=== PATIENT | female | born 2005 | race Caucasian/White ===

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

== ENCOUNTER 2023-03-16 10:42 | Inpatient (IN) | payer OTHER ==
[2023-03-16] MEDS ORDERED: DINOPROSTONE 10 MG VAGINAL SUPPOSITORY VG ONE (11:06)
[2023-03-16 12:07] VITALS: BMI 43.0
[2023-03-16 12:57] LABS: BASO % 0.4 % (0-2.0); EOS % 2.3 % (0-4.5); HEMATOCRIT 34.3 % (32.4-45.2); HEMOGLOBIN 11.6 GM/dL (10.7-15.3); LYMPH % 19.4 % (8-40); MCH 30.6 pg (25.7-33.7); MCHC 33.8 g/dl (32.0-36.0); MEAN CELL VOLUME 90.6 fl (80-96); MEAN PLT VOLUME 9.8 fl (7.5-11.1); MONO % 5.3 % (3.8-10.2); NEUT % 72.6 % (42.8-82.8); PLATELET COUNT 248 10^3/uL (134-434); RBC 3.78 M/mm3 (3.60-5.2); RDW 12.8 % (11.6-15.6); WHITE BLOOD COUNT 9.1 K/mm3 (4.0-10.0)
[2023-03-16 13:05] LABS: INR 1.03 (0.83-1.09); PROTHROMBIN TIME (PATIENT) 11.9 SEC (9.7-13.0)
[2023-03-16 13:07] LABS: ACTIVATED PTT 30.4 SECONDS (25.2-36.5)
[2023-03-16 13:11] LABS: POTASSIUM 4.1 mmol/L (3.5-5.1)
[2023-03-16 13:13] LABS: CALCIUM 9.4 mg/dL (8.5-10.1)
[2023-03-16 13:14] LABS: ALBUMIN 2.6 g/dl (3.4-5.0); BLOOD UREA NITROGEN 5.8 mg/dL (7-18)
[2023-03-16 13:16] LABS: CREATININE 0.6 mg/dL (0.55-1.3)
[2023-03-16 13:18] LABS: BILIRUBIN,TOTAL 0.5 mg/dL (0.2-1)
[2023-03-16 13:19] LABS: TOT PROT 6.7 g/dl (6.4-8.2)
[2023-03-16 13:39] LABS: HEPATITIS B SURFACE AG MATERN NON-REACTIVE (NONREACTIVE)
[2023-03-16 13:40] LABS: SYPHILIS W/ RPR CONF NON-REACTIVE (NONREACTIVE)
[2023-03-16 17:44] LABS: URINE BARBITURATES NEGATIVE (NEGATIVE)
[2023-03-16 17:45] LABS: COCAINE, UR NEGATIVE (NEGATIVE); METHADONE, UR NEGATIVE (NEGATIVE); PHENCYCLIDINE,URINE NEGATIVE (NEGATIVE); URINE AMPHETAMINES NEGATIVE (NEGATIVE); URINE BENZODIAZEPINES NEGATIVE (NEGATIVE)
[2023-03-16 18:12] LABS: OPIATES, URI NEGATIVE (NEGATIVE)
[2023-03-16] MEDS: ELECTROLYTE-148 SOLN 1,000 ML IV SCH (19:25)
[2023-03-17] MEDS: ELECTROLYTE-148 SOLN 1,000 ML IV SCH ×3 (00:50→23:39)
[2023-03-17] MEDS ORDERED: BUTORPHANOL TARTRATE 1 MG/ML VIAL IVPB ONE (01:40)
[2023-03-17] MEDS ORDERED: PROMETHAZINE HCL 25 MG/1 ML VIAL IVPB ONE (01:40)
[2023-03-17] MEDS ORDERED: DINOPROSTONE 10 MG VAGINAL SUPPOSITORY VG ONE (02:15)
[2023-03-17] MEDS ORDERED: BUTORPHANOL TARTRATE 2 MG/ML VIAL ONE (02:20)
[2023-03-17] MEDS ORDERED: PROMETHAZINE HCL 25 MG/1 ML VIAL ONE (02:20)
[2023-03-17] MEDS ORDERED: ACETAMINOPHEN 325 MG TABLET (FP) PO PRN (12:24)
[2023-03-17] MEDS ORDERED: DINOPROSTONE 10 MG VAGINAL SUPPOSITORY VG STA (12:29)
[2023-03-17] MEDS ORDERED: OXYTOCIN 30 UNITS in 0.9% NS 30 UNIT/500 ML INFUS.BAG IVPB SCH (13:45)
[2023-03-17] MEDS ORDERED: OXYTOCIN 30 UNITS in 0.9% NS 30 UNIT/500 ML INFUS.BAG IVPB ONE (13:47)
[2023-03-17] MEDS ORDERED: FENTANYL/BUPIVACAINE/NS/PF - PCEA - 50 ML DISP.SYRIN EP ONE ×2 (16:50→20:57)
[2023-03-17] MEDS ORDERED: BUPIVACAINE HCL/PF 0.25% (2.5MG/ML) 10 ML VIAL ONE (16:51)
[2023-03-17] MEDS: FENTANYL/BUPIVACAINE/NS/PF - PCEA - 50 ML DISP.SYRIN EP SCH ×2 (17:10→21:00)
[2023-03-17] MEDS ORDERED: NALOXONE HCL 0.4 MG/ML VIAL IVPUSH PRN (17:33)
[2023-03-18] MEDS ORDERED: FENTANYL/BUPIVACAINE/NS/PF - PCEA - 50 ML DISP.SYRIN EP ONE ×4 (00:27→09:31)
[2023-03-18] MEDS: FENTANYL/BUPIVACAINE/NS/PF - PCEA - 50 ML DISP.SYRIN EP SCH ×4 (00:39→09:35)
[2023-03-18] MEDS ORDERED: ONDANSETRON 4 MG/2 ML VIAL ONE ×2 (03:43→11:49)
[2023-03-18] MEDS ORDERED: ONDANSETRON 4 MG/2 ML VIAL IVPUSH ONE (04:19)
[2023-03-18] MEDS: ELECTROLYTE-148 SOLN 1,000 ML IV SCH (04:26)
[2023-03-18] MEDS ORDERED: OXYTOCIN 20 UNITS in 0.9% NS 20 UNIT/1,000 ML INFUS.BAG IV ONE (07:46)
[2023-03-18] MEDS ORDERED: FENTANYL CITRATE/PF 50 MCG/ML VIAL ONE ×2 (08:03→08:04)
[2023-03-18] MEDS ORDERED: LABETALOL HCL 5 MG/1 ML (100MG/20 ML VIAL) IVPUSH ONE (09:02)
[2023-03-18] MEDS ORDERED: LABETALOL HCL 5 MG/1 ML (100MG/20 ML VIAL) IVPUSH PRN ×2 (09:18→09:28)
[2023-03-18] MEDS ORDERED: hydrALAZINE HCL 20 MG/ML VIAL IVPUSH PRN (09:38)
[2023-03-18] MEDS ORDERED: CITRIC ACID/SODIUM CITRATE 30 ML UNIT-DOSE CUP PO ONE ×2 (10:16→10:30)
[2023-03-18] MEDS ORDERED: ELECTROLYTE-148 SOLN 1,000 ML IV SCH (10:30)
[2023-03-18] MEDS ORDERED: ELECTROLYTE-148 SOLN 500 ML IV SCH (10:30)
[2023-03-18] MEDS ORDERED: morphine SULFATE/PF 1 MG/2 ML (2cc Syringe - QUVA) ONE (11:17)
[2023-03-18] MEDS ORDERED: ceFAZolin SODIUM 1 GM VIAL ONE (11:18)
[2023-03-18] MEDS ORDERED: SODIUM CHLORIDE 0.9% P/F 10 ML VIAL IJ ONE (11:18)
[2023-03-18] MEDS ORDERED: PHENYLEPHRINE HCL 10 MG/1 ML SINGLE DOSE VIAL ONE (11:49)
[2023-03-18] MEDS ORDERED: METOCLOPRAMIDE HCL INJECTION 10 MG/2 ML VIAL ONE (11:49)
[2023-03-18] MEDS ORDERED: OXYTOCIN 10 UNITS/ML VIAL ONE (11:59)
[2023-03-18] MEDS ORDERED: METHYLERGONOVINE MALEATE 0.2 MG/1 ML AMP IM PRN (12:27)
[2023-03-18 14:09] LABS: CORD BASE EXCESS -6.1 mmol/L (0-2); CORD HCO3 19.2 mmHg (20-29); CORD PCO2 37.4 mmHg (30-78); CORD pH 7.328 (7.14-7.44)
[2023-03-18 14:19] LABS: CORD HCO3 16.9 mmHg (20-29); CORD PCO2 28.1 mmHg (30-78); CORD pH 7.397 (7.14-7.44)
[2023-03-18] MEDS: OXYTOCIN 20 UNITS in 0.9% NS 20 UNIT/1,000 ML INFUS.BAG IV SCH ×2 (14:41→23:14)
[2023-03-18] MEDS: CEFAZOLIN SODIUM 2 GM in DEXTROSE 5%-WATER 100 ML IVPB SCH (18:40)
[2023-03-18] MEDS: IBUPROFEN 800 MG/8 ML IJ IVPB PRN (23:29)
[2023-03-19] MEDS ORDERED: oxyCODONE HCL 5 MG TABLET PO PRN (00:27)
[2023-03-19] MEDS: CEFAZOLIN SODIUM 2 GM in DEXTROSE 5%-WATER 100 ML IVPB SCH ×2 (01:45→10:46)
[2023-03-19] MEDS: IBUPROFEN 800 MG/8 ML IJ IVPB PRN (08:01)
[2023-03-19 08:42] LABS: BASO % 0.5 % (0-2.0); EOS % 1.3 % (0-4.5); HEMATOCRIT 27.9 % (32.4-45.2); HEMOGLOBIN 9.6 GM/dL (10.7-15.3); LYMPH % 16.5 % (8-40); MCH 31.5 pg (25.7-33.7); MCHC 34.3 g/dl (32.0-36.0); MEAN CELL VOLUME 91.8 fl (80-96); MEAN PLT VOLUME 9.2 fl (7.5-11.1); MONO % 6.4 % (3.8-10.2); NEUT % 75.3 % (42.8-82.8); PLATELET COUNT 179 10^3/uL (134-434); RBC 3.04 M/mm3 (3.60-5.2); RDW 12.9 % (11.6-15.6); WHITE BLOOD COUNT 8.6 K/mm3 (4.0-10.0)
[2023-03-19] MEDS: ENOXAPARIN NA (PORCINE) 40 MG/0.4 ML DISP.SYRIN SQ SCH (10:53)
[2023-03-19] MEDS: ACETAMINOPHEN 325 MG TABLET (FP) PO PRN ×2 (11:36→18:31)
[2023-03-19] MEDS: SIMETHICONE 80 MG TAB.CHEW (FP) PO PRN ×3 (11:37→20:49)
[2023-03-19] MEDS ORDERED: BISACODYL 10 MG SUPP.RECT RC PRN (12:27)
[2023-03-19] MEDS: IBUPROFEN 600 MG TABLET (FP) PO PRN ×2 (15:17→20:49)
[2023-03-19] MEDS: OXYTOCIN 20 UNITS in 0.9% NS 20 UNIT/1,000 ML INFUS.BAG IV SCH (20:22)
[2023-03-20] MEDS: SIMETHICONE 80 MG TAB.CHEW (FP) PO PRN ×3 (02:55→14:37)
[2023-03-20] MEDS: ACETAMINOPHEN 325 MG TABLET (FP) PO PRN (02:55)
[2023-03-20] MEDS: IBUPROFEN 600 MG TABLET (FP) PO PRN ×3 (06:28→20:45)
[2023-03-20] MEDS: oxyCODONE HCL 5 MG TABLET PO PRN ×2 (09:26→14:36)
[2023-03-20] MEDS: ENOXAPARIN NA (PORCINE) 40 MG/0.4 ML DISP.SYRIN SQ SCH (10:20)
[2023-03-21 08:21] LABS: BASO % 0.5 % (0-2.0); EOS % 2.2 % (0-4.5); HEMATOCRIT 28.5 % (32.4-45.2); HEMOGLOBIN 9.5 GM/dL (10.7-15.3); LYMPH % 19.8 % (8-40); MCH 30.6 pg (25.7-33.7); MCHC 33.4 g/dl (32.0-36.0); MEAN CELL VOLUME 91.6 fl (80-96); MEAN PLT VOLUME 9.4 fl (7.5-11.1); MONO % 5.8 % (3.8-10.2); NEUT % 71.7 % (42.8-82.8); PLATELET COUNT 253 10^3/uL (134-434); RBC 3.11 M/mm3 (3.60-5.2); RDW 13.1 % (11.6-15.6); WHITE BLOOD COUNT 8.4 K/mm3 (4.0-10.0)
[2023-03-21 09:07] VITALS: RESP 16
[2023-03-21 09:10] VITALS: BP 128/73; PULSE 89; TEMP 98.3
[2023-03-21] MEDS: ENOXAPARIN NA (PORCINE) 40 MG/0.4 ML DISP.SYRIN SQ SCH (09:32)
== END 2023-03-21 13:40 | disposition home or self-care (01) | DRG 540 ==
LOC: JLDR 10:42 → J3W 03-18 15:00
PROVIDERS: ADMIT Obstetrics & Gynecology; ATTEND Obstetrics & Gynecology
PROC: 10907ZC Drainage of Amniotic Fluid, Therapeutic from Products of Conception, Via Natural or Artificial Opening (ICD-10-PCS; 2023-03-16)
PROC: 3E0P7VZ Introduction of Hormone into Female Reproductive, Via Natural or Artificial Opening (ICD-10-PCS; 2023-03-17)
PROC: 10D00Z1 Extraction of Products of Conception, Low, Open Approach (ICD-10-PCS; principal; 2023-03-18)
DX: O62.1 Secondary uterine inertia (principal); O26.613 Liver and biliary tract disorders in pregnancy, third trimester; K83.1 Obstruction of bile duct; O10.42 Pre-existing secondary hypertension complicating childbirth; G93.2 Benign intracranial hypertension; O61.0 Failed medical induction of labor; O61.1 Failed instrumental induction of labor; O69.81X0 Labor and delivery complicated by cord around neck, without compression, not applicable or unspecified; Z37.0 Single live birth; Z3A.38 38 weeks gestation of pregnancy
CPT/HCPCS: 36415; 36600; 80053; 80307; 82803; 85025; 85610; 85730; 86780; 86850; 86900; 86901; 87340; 88307-TC

== ENCOUNTER 2023-09-19 09:10 | Emergency (ER) | payer OTHER ==
[2023-09-19 09:16] VITALS: BP 116/77; PULSE 107; RESP 18; BMI 38.7
[2023-09-19 09:24] VITALS: TEMP 98.6
== END 2023-09-19 10:41 | disposition home or self-care (01) ==
LOC: JERFT 09:10
DX: J02.0 Streptococcal pharyngitis (principal)
CPT/HCPCS: 87651; 99283-25